=== PATIENT | male | born 1950 | race Caucasian/White ===

== ENCOUNTER 2016-09-06 08:00 | Outpatient (CLI) | payer MEDICARE, OTHER ==
[~2016-09-06] VITALS: Ht 177.8 cm; Wt 106.6 kg
[2016-09-06] MEDS ORDERED: LISI-552 PO (08:16)
== END 2016-09-06 08:35 ==
LOC: PREOP 08:00
PROVIDERS: ATTEND Surgery
DX: Z01.818 Encounter for other preprocedural examination (principal); Z12.11 Encounter for screening for malignant neoplasm of colon

== ENCOUNTER 2016-09-09 10:08 | Day surgery (SDC) | payer OTHER ==
[~2016-09-09] VITALS: Ht 177.8 cm; Wt 106.6 kg
[~2016-09-09 10:08] MED LIST: LISI-552 PO
[2016-09-09] MEDS ORDERED: NS IV 500 ML 500 ML IV PRN (10:25)
[2016-09-09] MEDS ORDERED: NALOXONE 0.4 MG/ML 1 ML (NARCAN) VIAL IVP PRN (10:30)
[2016-09-09] MEDS ORDERED: FLUMAZENIL (ROMAZICON) 0.1 MG/ML 5 ML VIAL INJ PRN (10:30)
--- NOTE | 2016-09-09 10:49 | Conscious Sedation/ASA ---
Conscious Sedation Pre-Proced ASA Class: 2 Airway Mallampati Classification: (nez perce appropriate class) I. II. III, IV Lungs Heart ASA score ASA 1: a normal healthy patient ASA 2: a patient with a mild systemic disease (mid diabetes, controlled hypertension, obesity ASA 3: a patient with a severe systemic disease that limits activity (angina , COPD, prior Myocardial infarction) ASA 4: a patient with an incapacitating disease that is a constant threat to life (CHF, renal failure) ASA 5: a moribund patient not expected to survive 24 hrs. (ruptured aneurysm) ASA 6: a declared brain patient whose organs are being harvested. For emergent operations, add the letter E after the classification Grade 2 Sedation Plan: Discussed options with patient/fam Note The patient is an appropriate candidate to undergo the planned procedure, sedation, and anesthesia. The patient immediately re-assessed prior to indication. SAYDA GUERRERO MD Sep 09, 2016 10:49 am
[2016-09-09 11:30] VITALS: BP 135/75
[2016-09-09] MEDS ORDERED: MIDAZOLAM 2 MG/2 ML (VERSED) VIAL ONE ×3 (12:02→12:16)
[2016-09-09] MEDS ORDERED: fentaNYL INJECTION 100 MCG/2 ML AMP ONE (12:02)
[2016-09-09] MEDS: fentaNYL INJECTION 100 MCG/2 ML AMP IVP PRN ×2 (12:05→12:15)
[2016-09-09] MEDS: MIDAZOLAM 2 MG/2 ML (VERSED) VIAL IVP PRN ×3 (12:07→12:20)
[2016-09-09 12:35] VITALS: BP 87/48
--- NOTE | 2016-09-09 12:38 | Endoscopy Procedure Report ---
Endoscopy Report Date: Sep 09, 2016 Preoperative Diagnosis: screening Study Performed: Colonoscopy Procedure Instrument: Colonoscope Endo Procedure/Findings Findings 1.: Diverticulosis Recommendations: Recommendations: 1.: Colonscopy in 10 years Copy Copies To 1: SHERRY SANCHEZ MD, XAVIER M MD Sep 09, 2016 12:38 pm
--- NOTE | 2016-09-09 12:39 | Discharge Inst-Simple/Standard ---
Discharge Inst-Standard Discharge Medications New, Converted or Re-Newed RX: Other Patient Instructions/Follow Up Plan of Care/Instructions/FU: rrepeat colonoscopy in 10 years Activity as Tolerated: Yes Discharge Diet: No Restrictions SAYDA GUERRERO MD Sep 09, 2016 12:39 pm
[2016-09-09 13:10] VITALS: BP 104/77
[2016-09-09 13:22] VITALS: BP 104/77
--- NOTE | 2016-09-10 10:58 | PROCEDURE REPORT ---
PROCEDURE PHYSICIAN: SAYDA GUERRERO DATE OF PROCEDURE: 09/09/2016 PROCEDURE: Screening colonoscopy SURGEON: Matt INDICATION FOR THE PROCEDURE: This gentleman came in for screening colonoscopy. He denied any family history of colon cancer. An informed consent was obtained after reviewing the procedure in detail. DESCRIPTION OF PROCEDURE: He was placed in left lateral decubitus position and his vital signs were monitored. Conscious sedation was achieved using Versed and fentanyl. Digital rectal examination was unremarkable. The colonoscope was then introduced into the rectum and advanced all the way up to the cecum. The scope was then withdrawn slowly and the mucosa examined in a systematic fashion. FINDINGS: Diffuse diverticulosis. No polyps were found. He tolerated the procedure well and was taken back to the nursing area in a stable condition. IMPRESSION: 1. Screening colonoscopy. 2. No polyps. 3. No family history. Recommending repeating in 10 years. Job ID: [id number] Dictated Date: 09/09/2016 12:28:16 Marketing Automation Manager Date: 09/10/2016 10:55:16 / jayden GILBERT
== END 2016-09-09 13:15 | disposition home or self-care (01) ==
LOC: ENDO 10:08
PROVIDERS: ATTEND Surgery
DX: Z12.11 Encounter for screening for malignant neoplasm of colon (principal); K57.90 Diverticulosis of intestine, part unspecified, without perforation or abscess without bleeding

== ENCOUNTER 2020-11-16 05:35 | Outpatient (CLI) | payer MEDICARE, OTHER ==
[~2020-11-16] VITALS: Ht 177.8 cm; Wt 117.9 kg
[~2020-11-16 05:35] MED LIST changes: -LISI-552 PO; +LISI20TA26 PO
[2020-11-16] MEDS ORDERED: PANT40TA52 PO (14:16)
[2020-11-16] MEDS ORDERED: PRED5DRO24 OP (14:16)
[2020-11-16] MEDS ORDERED: KETO1DRO OP (14:16)
[2020-11-16] MEDS ORDERED: OFLO5DRO33 OP (14:16)
[2020-11-16] MEDS ORDERED: ONDA4TAB11 PO (14:16)
[2020-11-16] MEDS ORDERED: LISI20TA26 PO (14:45)
== END 2020-11-16 15:29 | disposition home or self-care (01) ==
LOC: PREOP 05:35
PROVIDERS: ATTEND Surgery
DX: Z01.818 Encounter for other preprocedural examination (principal)

== ENCOUNTER 2020-11-23 05:52 | Day surgery (SDC) | payer MEDICARE, OTHER ==
[2020-11-23] VITALS (10 sets, daily range): BP systolic 113–182; BP diastolic 61–99
[~2020-11-23] VITALS: Ht 177 cm; Wt 117.9 kg
[~2020-11-23 05:52] MED LIST changes: +KETO1DRO OP; +OFLO5DRO33 OP; +ONDA4TAB11 PO; +PANT40TA52 PO; +PRED5DRO24 OP
[2020-11-23] MEDS ORDERED: ceFAZolin INJECTION 1,000 MG in WATER (STERILE) FOR INJECTION 10 ML IV ONE (06:00)
[2020-11-23] MEDS: LACTATED RINGERS 1,000 ML IV PRN ×2 (06:30→09:08)
[2020-11-23] MEDS ORDERED: ceFAZolin 2 GM IV Premixed 50 ML ONE (06:39)
[2020-11-23 06:47] LABS: BASOPHILS # (AUTO) 0.1 10^3/uL (0.0-0.1); BASOPHILS % (AUTO) 1 % (0-10); EOSINOPHILS # (AUTO) 0.2 10^3/uL (0.0-0.3); EOSINOPHILS % (AUTO) 3 % (0-10); HEMATOCRIT 45 % (40-54); HEMOGLOBIN 15.1 g/dL (13.3-17.7); LYMPHOCYTES # (AUTO) 3.4 10^3/uL (1.0-4.0); LYMPHOCYTES % (AUTO) 39 % (12-44); MEAN CORPUSCULAR HEMOGLOBIN 29 pg (25-34); MEAN CORPUSCULAR HGB CONC 34 g/dL (32-36); MEAN CORPUSCULAR VOLUME 87 fL (80-99); MEAN PLATELET VOLUME 10.2 fL (9.0-12.2); MONOCYTES # (AUTO) 0.6 10^3/uL (0.0-1.0); MONOCYTES % (AUTO) 7 % (0-12); NEUTROPHILS # (AUTO) 4.4 10^3/uL (1.8-7.8); NEUTROPHILS % (AUTO) 50 % (42-75); PLATELET COUNT 184 10^3/uL (130-400); WHITE BLOOD COUNT 8.7 10^3/uL (4.3-11.0)
[2020-11-23] MEDS ORDERED: LIDOCAINE/EPI 1%-1:100,000 (XYLOCAINE) 20ML ONE (07:17)
[2020-11-23] MEDS ORDERED: ONDANSETRON 4 MG/2 ML (SDV) Z0FRAN ONE (07:27)
[2020-11-23] MEDS ORDERED: proPOfol 200 MG/20 ML (DIPRIVAN) VIAL IV ONE (07:27)
[2020-11-23] MEDS ORDERED: SUCCINYLCHOLINE INJ 100 MG/5 ML SYR/VIAL ONE (07:27)
[2020-11-23] MEDS ORDERED: ROCURONIUM 10 MG/ML 5 ML SYRINGE IV ONE (07:27)
[2020-11-23] MEDS ORDERED: fentaNYL INJ 100 MCG/2 ML AMP ONE (07:28)
[2020-11-23] MEDS ORDERED: LIDOCAINE PF 2% 5 ML (XYLOCAINE) VIAL ONE (07:28)
--- NOTE | 2020-11-23 08:01 | Progress Note-Pre Operative ---
Pre-Operative Progress Note H&P Reviewed The H&P was reviewed, patient examined and no changes noted. Date Seen by Provider: Nov 23, 2020 Time Seen by Provider: 08:00 Date H&P Reviewed: Nov 23, 2020 Time H&P Reviewed: 08:00 Pre-Operative Diagnosis: symptomatic cholelithiasis CECILIO MONTESINOS DO Nov 23, 2020 08:01
[2020-11-23] MEDS ORDERED: GLYCOPYRROLATE 0.2 MG/ML (ROBINUL) 2 ML VIAL ONE (09:01)
[2020-11-23] MEDS ORDERED: NEOSTIGMINE 3 MG/3 ML VIAL ONE (09:02)
[2020-11-23] MEDS ORDERED: KETOROLAC 30 MG/ML VIAL ONE (09:04)
[2020-11-23] MEDS ORDERED: ACHD5005 PO (09:09)
[2020-11-23] MEDS ORDERED: DOCU-143 PO (09:09)
--- NOTE | 2020-11-23 09:12 | Discharge Inst-Simple/Standard ---
Discharge Inst-Standard Discharge Medications New, Converted or Re-Newed RX: Transmitted to Pharmacy Patient Instructions/Follow Up Plan of Care/Instructions/FU: 2-3 weeks Dandy Activity as Tolerated: No Discharge Diet: Regular Diet Other Inst to Patient Follow up Appt: Make appointment for 2-3 weeks. Instructions: No lifting greater than 10 pounds. No strenuous activity. May shower in 24 hours, no tub bath or soaking. Use incentive spirometer at home as directed. No Smoking Skin/Wound Care: You have special glue over incision, it will fall off on it's own. Symptoms to Report: Appetite Changes, Extremity Discoloration, Numbness/Tingling, Swelling Increased, Bleeding Excessive, Eyesight Changes, Pain Increased, Urine Color Change, Constipation(Persistent), Fever over 101 degree F, Pain/Pressure in chest, Urinating Difficulty, Cough Up/Vomit Blood, Heart Beat Irreg/Pounding, Pain/Pressure in jaw, Vaginal Bleeding Increase, Cramps in feet or legs, Lightheadedness, Pain/Pressure in shoulder, Diarrhea(Persistent), Memory Changes Suddenly, Questions/Concerns, Weight gain consecutive days, Dizziness/Fainting, Nausea/Vomiting, Shortness of Breath, Weight gain over 2 pounds. If eyes or skin turn yellow notify physician. If questions or concerns contact your physician Or seek help at emergency department. CECILIO MONTESINOS DO Nov 23, 2020 09:12
--- NOTE | 2020-11-23 09:17 | Progress Note-Post Operative ---
Post-Operative Progess Note Surgeon (s)/Public Health Internship (s) Surgeon CECILIO MONTESINOS DO Public Health Internship: Dr. Funk to assist in retraction dissection and closure. Pre-Operative Diagnosis symptomatic cholelithiasis Post-Operative Diagnosis same Procedure & Operative Findings Date of Procedure 11/23/20 Procedure Performed/Findings PROCEDURE: Laparoscopic cholecystectomy with intraoperative cholangiogram. COMPLICATIONS: None. INDICATIONS: Patient is a 70 year old morbidly obese male with symptomatic cholelithiasis. We discussed risks and benefits and wishes to proceed. Consent signs and on the chart. Dr. Funk assisted due to morbid obesity retraction dissection and closure. PROCEDURE: The patient was taken to the operating suite and was prepped and draped in sterile fashion. A surgical pause was performed. Just superior to the umbilicus, a 12 mm incision was made. Dissection was taken down to the fascia, which was then scored and grasped with a Fady and the abdomen was then entered. A 0 Vicryl suture was placed in a ocyaww-[id number] fashion and a Mayen trocar was placed and secured. Pneumoperitoneum was achieved. A 5mm trochar place in the subxyphoid and 2 in the right upper quadrant. The gallbladder was then grasped and elevated. The cystic duct, and cystic artery were then dissected out. Clip was placed on the distal portion of the cystic duct which was then partially transected. An arrow catheter was inserted into the duct. The cholangiogram was then performed. No filing defects and contrast made its way into the duodenum. Catheter removed. Clips were placed on proximal portion of the cystic duct and then the duct was then transected. Clips were placed along the proximal and distal portion of the cystic artery which was then transected. Hook cautery was used to dissect the gallbladder from the gallbladder fossa achieving hemostasis. The gallbladder was placed in an Endobag and removed through the 12 mm trocar site. The abdomen was then reinspected. Copious amounts of irrigation were used to irrigate the abdomen and there were no signs of active bleeding. Hemostasis had been achieved. The 12 mm fascial defect was then closed with 0 Vicryl suture that had been placed in a [id number] fashion. The abdomen was then desufflated, the trocars were removed. The abdomen was then washed and dried. The skin was then closed using 4-0 Monocryl in a subcuticular fashion. The abdomen was washed and dried and Skin Affix was place over incisions. Patient tolerated the procedure well without any complications and was taken to the recovery room in stable condition. Anesthesia Type general Estimated Blood Loss Estimated blood loss (mL): minimal Specimens/Packing Specimens Removed gallbladder CECILIO MONTESINOS DO Nov 23, 2020 09:17
[2020-11-23] MEDS ORDERED: SEVOFLURANE (ULTANE) 15 ML INHAL SOLN ONE (09:23)
[2020-11-23] MEDS ORDERED: morphine INJ 10 MG/ML 1ML (SYR OR VIAL) IVP ONE (09:30)
[2020-11-23] MEDS ORDERED: HYDROmorphone 2 MG/ML VIAL (DILAUDID) IV ONE (09:30)
[2020-11-23] MEDS ORDERED: ONDANSETRON 4 MG/2 ML (SDV) Z0FRAN IVP PRN (09:30)
--- NOTE | 2020-11-23 09:33 | Diagnostic Imaging Report ---
INDICATION: Fluoroscopy during intraoperative cholangiogram. TECHNIQUE: Fluoroscopy was provided in the OR during intraoperative cholangiogram. 12 seconds of fluoroscopic time was utilized. Three images were obtained. FINDINGS: The obtained images demonstrate contrast being injected via the cystic duct remnant. The extrahepatic bile duct is of normal caliber. There is no opacification of the intrahepatic ducts. There does appear to be contrast flowing into the duodenum. IMPRESSION: Fluoroscopy during intraoperative cholangiogram. Dictated by: Dictated on workstation # [id number]
--- NOTE | 2020-11-23 15:13 | Anesthesia-General Post-Op ---
General Patient Condition Mental Status/LOC: Same as Preop Cardiovascular: Satisfactory Nausea/Vomiting: Absent Respiratory: Satisfactory Pain: Controlled Complications: Absent Post Op Complications Complications None Follow Up Care/Instructions Patient Instructions None needed. Anesthesia/Patient Condition Patient Condition Patient is doing well, no complaints, stable vital signs, no apparent adverse anesthesia problems. No complications reported per nursing. HUANG TIERNEY CRNA Nov 23, 2020 15:13
== END 2020-11-23 11:10 ==
LOC: SDC 05:52
PROVIDERS: ATTEND Surgery
DX: K80.10 Calculus of gallbladder with chronic cholecystitis without obstruction (principal); I10 Essential (primary) hypertension; G47.33 Obstructive sleep apnea (adult) (pediatric); K21.9 Gastro-esophageal reflux disease without esophagitis; E66.9 Obesity, unspecified; Z68.37 Body mass index [BMI] 37.0-37.9, adult; Z79.899 Other long term (current) drug therapy; Z87.891 Personal history of nicotine dependence
CPT/HCPCS: 36415; 76000; 85025; 87081; 88304